=== PATIENT | female | born 1995 | race Caucasian/White ===

== ENCOUNTER 2016-08-23 09:21 | Emergency (ER) | payer SELFPAY ==
[2016-08-23 12:08] LABS: HEMOGLOBIN 14.2 gm/dl (12.3-15.3); RED BLOOD COUNT 4.89 M/UL (4.00-5.10); WHITE BLOOD COUNT 3.5 K/UL (4.5-11.0)
[2016-08-23 12:30] LABS: BUN/CREATININE RATIO 10 (0-10)
== END 2016-08-23 15:15 | disposition home or self-care (01) ==
LOC: ER1 09:21
PROVIDERS: Emergency Medicine
DX: J11.1 Influenza due to unidentified influenza virus with other respiratory manifestations (principal)
CPT/HCPCS: 36415; 71020; 80053; 81001; 84703; 85025; 87040; 87081; 87880; 96360; 99283

== ENCOUNTER → 2021-01-28 | Outpatient (CLI) | payer OTHER ==
[~2021-01-28] MED LIST: BENADRYL 25MG C25 MG PO; BENTYL 20MG TAB20 MG PO; COLACE 100MG C100 MG PO; FERROUS SULFAT325 M2 PO; IBUPROFEN600 MG PO; LODINE CAP 300300 MG PO; LORTAB 5-325 M1 EACH PO; MACROBID 100 M100 MG PO; PHENERGAN 25 MG25 M1 PO; PRENATAL VITAM1 EAC8 PO; REGLAN10 MG PO; ZOFRAN ODT 4 MG4 MG PO; ZOFRAN ODT 4 MG4 MG SL; ZOFRAN4 MG PO
== END ==
LOC: KOH-I 09:56
DX: R07.81 Pleurodynia (principal)
CPT/HCPCS: 71100

== ENCOUNTER → 2021-05-21 | Outpatient (CLI) | payer OTHER | LOC: CT 14:30 | DX: R10.9 Unspecified abdominal pain (principal) | CPT/HCPCS: Q9967 ==

== ENCOUNTER 2021-11-06 12:28 | Emergency (ER) | payer OTHER ==
[2021-11-06 13:02] LABS: HEMOGLOBIN 13.4 gm/dl (12.3-15.3); RED BLOOD COUNT 4.98 M/UL (4.00-5.10); WHITE BLOOD COUNT 7.6 K/UL (4.5-11.0)
[2021-11-06 13:30] LABS: BUN/CREATININE RATIO 15 (0-10)
[2021-11-06] MEDS ORDERED: AMOX TR-K CLV1 EAC4 PO (14:54)
[2021-11-06] MEDS ORDERED: METRONIDAZOLE500 MG PO (15:00)
== END 2021-11-06 15:06 | disposition home or self-care (01) ==
LOC: ER1 12:28
PROVIDERS: Nurse Practitioner
DX: K52.9 Noninfective gastroenteritis and colitis, unspecified (principal); Z88.0 Allergy status to penicillin
CPT/HCPCS: 80053; 80076; 81001; 82150; 83605; 83690; 85025; 85652; 86140; 96374; 99284; J2405; Q9967